=== PATIENT | female | born 1995 | race Caucasian/White ===

== ENCOUNTER 2018-04-13 23:26 | Emergency (ER) | payer BC ==
[2018-04-13 23:39] VITALS: BP 107/72; PULSE 92; RESP 20; TEMP 98.4; O2SAT 99
[2018-04-13 23:51] LABS: HCG,QUALITATIVE URINE NEGATIVE (NEGATIVE)
[2018-04-14] LABS: SQUAMOUS EPITHIAL 4 /hpf (0-5); URINE BACTERIA RARE (<OCC); URINE BILIRUBIN NEGATIVE (NEGATIVE); URINE BLOOD NEGATIVE (NEGATIVE); URINE CLARITY Hazy (Clear); URINE COLOR Yellow (YELLOW); URINE GLUCOSE (UA) NORMAL (Normal); URINE LEUKOCYTE ESTERASE 2+ Leu/uL (Negative); URINE PROTEIN 1+ mg/dL (NEGATIVE)
--- NOTE | 2018-04-14 00:29 | C.PDOC ---
History Of Present Illness 22 year old female presents to the emergency department with complaints of experiencing dysuria over the past week. Patient states that her dysuria is associated with frequency. Patient reports taking OTC medications at home with no relief. She denies hematuria, back pain, fever, or vomiting. Time Seen by Provider: 04/13/18 23:38 Chief Complaint (Nursing): Female Genitourinary History Per: Patient History/Exam Limitations: no limitations Onset/Duration Of Symptoms: Other (1 week) Current Symptoms Are (Timing): Still Present Quality Of Discomfort: "Pain" Associated Symptoms: Urinary Symptoms (dysuria). denies: Fever, Vomiting, Back Pain, Other (hematuria) Past Medical History Reviewed: Historical Data, Nursing Documentation, Vital Signs Vital Signs: Last Vital Signs Temp 98.4 F 04/13/18 23:35 Pulse 92 H 04/13/18 23:35 Resp 20 04/14/18 00:51 BP 107/72 04/13/18 23:35 Pulse Ox 99 04/14/18 01:59 - Medical History PMH: No Chronic Diseases Surgical History: No Surg Hx Family History: States: No Known Family Hx - Social History Hx Alcohol Use: No Hx Substance Use: No - Immunization History Hx Tetanus Toxoid Vaccination: No Hx Influenza Vaccination: No Hx Pneumococcal Vaccination: No Review Of Systems Except As Marked, All Systems Reviewed And Found Negative. Constitutional: Negative for: Fever Gastrointestinal: Negative for: Vomiting Genitourinary: Positive for: Dysuria. Negative for: Hematuria Musculoskeletal: Negative for: Back Pain Physical Exam - Physical Exam Appears: Non-toxic, No Acute Distress Skin: Warm, Dry, No Rash Head: Atraumatic, Normacephalic Eye(s): bilateral: Normal Inspection Oral Mucosa: Moist Throat: No Erythema, No Exudate Neck: Normal ROM, Supple Chest: Symmetrical, No Tenderness Cardiovascular: Rhythm Regular, No Murmur Respiratory: No Rales, No Rhonchi, No Wheezing Gastrointestinal/Abdominal: Soft, Tenderness (suprapubic tenderness), No Guarding, No Rebound Back: No CVA Tenderness Neurological/Psych: Oriented x3, Normal Speech, Normal Cognition ED Course And Treatment O2 Sat by Pulse Oximetry: 99 (RA) Pulse Ox Interpretation: Normal Progress Note: Plan: Cipro 500mg PO. Pyridium 200mg PO. Urine Culture. Urine. Urinalysis Disposition - Disposition Referrals: [facility] [Outside] Disposition: HOME/ ROUTINE Disposition Time: 00:27 Condition: FAIR Additional Instructions: Follow up with the medical doctor within 1-2 days, Return if worsened. Prescriptions: Ciprofloxacin [Cipro] 1 tab PO BID #14 tab Phenazopyridine HCl [Pyridium] 200 mg PO TID #7 tablet Instructions: Urinary Tract Infections in Adults Forms: [facility] (Indonesian) - Clinical Impression Clinical Impression: UTI (urinary tract infection) - PA / PHD INTERN / Resident Statement MD/DO has reviewed & agrees with the documentation as recorded. - Scribe Statement The provider has reviewed the documentation as recorded by the Scribe (Gumaro Pastor) All medical record entries made by the Scribe were at my direction and personally dictated by me. I have reviewed the chart and agree that the record accurately reflects my personal performance of the history, physical exam, medical decision making, and the department course for this patient. I have also personally directed, reviewed, and agree with the discharge instructions and disposition.
== END 2018-04-14 00:51 | disposition home or self-care (01) ==
LOC: C.ER 23:26
DX: N39.0 Urinary tract infection, site not specified (principal)

== ENCOUNTER 2018-09-02 11:02 | Emergency (ER) | payer BC ==
[2018-09-02 11:09] VITALS: RESP 18; O2SAT 100
[2018-09-02] MEDS ORDERED: Sodium Chloride 0.9% 1,000 ML IV ONE (11:25)
--- NOTE | 2018-09-02 11:46 | C.PDOC ---
History Of Present Illness 23 year old female presents at 13-14 weeks complaining of vaginal bleeding since this morning. She denies any previous episodes of spotting and was last seen by [employer] on Monday (normal exam). She states she noticed bright red blood initially but now just notices dark brown spotting on her underwear. She denies any clots or hemorrhaging. She denies any fever, chills, headache, abdominal pain, N/V/D, SOB and chest pain. <Andrea Mena - Last Filed: 09/02/18 15:28> <Eloisa Sylvester - Last Filed: 09/02/18 15:09> History Per: Patient, Family History/Exam Limitations: no limitations Onset/Duration Of Symptoms: Sudden Onset Current Symptoms Are (Timing): Still Present Associated Symptoms: denies: Fever, Chills, Nausea, Vomiting, Loss Of Appetite, Back Pain, Chest Pain, Urinary Symptoms Recent travel outside of the [place]: No Abnormal Vaginal Bleeding: Yes : 1 Para: 0 Miscarriage: 0 <Andrea Mena - Last Filed: 09/02/18 15:28> Time Seen by Provider: 09/02/18 11:24 Chief Complaint (Nursing): Female Genitourinary Past Medical History Vital Signs: Last Vital Signs Temp 98.2 F 09/02/18 14:21 Pulse 81 09/02/18 14:21 Resp 18 09/02/18 14:21 BP 100/68 09/02/18 14:21 Pulse Ox 100 09/02/18 14:21 <Eloisa Sylvester - Last Filed: 09/02/18 15:09> Reviewed: Historical Data, Nursing Documentation, Vital Signs Vital Signs: Last Vital Signs Temp 97.4 F L 09/02/18 11:05 Pulse 80 09/02/18 11:05 Resp 18 09/02/18 11:05 BP 107/67 09/02/18 11:05 Pulse Ox 100 09/02/18 11:05 - Medical History PMH: No Chronic Diseases Family History: States: Unknown Family Hx - Social History Hx Alcohol Use: No Hx Substance Use: No - Immunization History Hx Tetanus Toxoid Vaccination: No Hx Influenza Vaccination: No Hx Pneumococcal Vaccination: No <Andrea Mena - Last Filed: 09/02/18 15:28> Review Of Systems Constitutional: Negative for: Fever, Chills, Weakness Cardiovascular: Negative for: Chest Pain, Palpitations, Light Headedness Respiratory: Negative for: Cough, Shortness of Breath Gastrointestinal: Negative for: Nausea, Vomiting, Abdominal Pain, Diarrhea Genitourinary: Positive for: Vaginal Bleeding. Negative for: Dysuria, Vaginal Discharge, Pelvic Pain Musculoskeletal: Negative for: Back Pain, Leg Pain Skin: Negative for: Rash Neurological: Negative for: Headache, Dizziness <Andrea Mena - Last Filed: 09/02/18 15:28> Physical Exam - Physical Exam Appears: Well, Non-toxic, No Acute Distress Skin: Normal Color, Warm, Dry Head: Atraumatic, Normacephalic, No Tenderness Neck: Normal ROM, Supple Lymphatic: No Adenopathy Chest: Symmetrical Cardiovascular: Rhythm Regular Respiratory: Normal Breath Sounds, No Wheezing Gastrointestinal/Abdominal: Bowel Sounds, Soft, No Tenderness Back: No CVA Tenderness Neurological/Psych: Oriented x3, Normal Speech, Normal Cognition, Normal Sensation <Andrea Mena - Last Filed: 09/02/18 15:28> ED Course And Treatment - Laboratory Results Result Diagrams: 09/02/18 11:48 09/02/18 11:48 Lab Results: Total Bilirubin 0.4 mg/dL (0.2-1.3) 09/02/18 11:48 AST 17 U/L (14-36) 09/02/18 11:48 ALT 14 U/L (9-52) 09/02/18 11:48 Alkaline Phosphatase 49 U/L (38-126) 09/02/18 11:48 Total Protein 7.0 g/dL (6.3-8.3) 09/02/18 11:48 Albumin 4.0 g/dL (3.5-5.0) 09/02/18 11:48 Globulin 3.0 gm/dL (2.2-3.9) 09/02/18 11:48 Albumin/Globulin Ratio 1.4 (1.0-2.1) 09/02/18 11:48 Urine Color Straw (YELLOW) 09/02/18 11:48 Urine Clarity Clear (Clear) 09/02/18 11:48 Urine pH 7.0 (5.0-8.0) 09/02/18 11:48 Ur Specific [place] 1.012 (1.003-1.030) 09/02/18 11:48 Urine Protein Negative mg/dL (NEGATIVE) 09/02/18 11:48 Urine Glucose (UA) Normal mg/dL (Normal) 09/02/18 11:48 Urine Ketones Negative mg/dL (NEGATIVE) 09/02/18 11:48 Urine Blood 2+ (NEGATIVE) H 09/02/18 11:48 Urine Nitrate Negative (NEGATIVE) 09/02/18 11:48 Urine Bilirubin Negative (NEGATIVE) 09/02/18 11:48 Urine Urobilinogen Normal mg/dL (0.2-1.0) 09/02/18 11:48 Ur Leukocyte Esterase Neg Susan/uL (Negative) 09/02/18 11:48 Urine WBC (Auto) 1 /hpf (0-5) 09/02/18 11:48 Urine RBC (Auto) 8 /hpf (0-3) H 09/02/18 11:48 Ur Squamous Epith Cells 5 /hpf (0-5) 09/02/18 11:48 Urine Bacteria Rare (<OCC) 09/02/18 11:48 Urine HCG, Qual Positive (NEGATIVE) 09/02/18 11:48 Beta HCG, Quant 00296.00 mIU/ML 09/02/18 11:48 Urine HCG, Qual Positive (NEGATIVE) 09/02/18 11:48 <Eloisa Sylvester M - Last Filed: 09/02/18 15:09> - Laboratory Results Result Diagrams: 09/02/18 11:48 09/02/18 11:48 O2 Sat by Pulse Oximetry: 100 - Other Rad US X-Ray: Viewed By Me, Read By Radiologist Interpretation: Accession No. : [id number]. Patient Name / ID : SERENA MIJARES / [id number]. Exam Date : 09/02/2018 12:53:32 ( Approved ). Study Comment : Sex / Age : F / 23Y. Creator : Stan Washington MD. Dictator : Stan Washington MD. Data Storage Specialist : Cafeteria Counter Attendant : Stan Washington MD. Approver2 : Report Date : 09/02/2018 14:57:53. My Comment : . Pelvic ultrasound. HISTORY: . Bleeding. Comparison: None available. Technique: Real-time sonography was performed through the pelvis. Findings: Please note this is a limited study for viability purposes only. Dedicated anatomic survey at an interval date is recommended to assess for anomaly. Cervical os measures 3.05 centimeters. Posterior placental position. Posterior placenta approximately 4.2 centimeters away from the covering os. Variable presentation. motion and heart rate noted. heart rate 156 beats per minute. Mean ultrasound age of approximately 14 weeks and 2 days. Biparietal diameter abel ures 2.6 centimeters, head circumference measures 9.6 centimeters, abdominal circumference measures 8.1 centimeters, and femur measures 1.5 centimeters. Please note 4 chamber heart view and 3 vessel cord insert views were not documented on the submitted images. Again dedicated anatomic survey is recommended at an interval date. Impression: Limited study for viability purposes only. Dedicated anatomic survey at an interval date is recommended to assess for anomaly. Intrauterine corresponding to a mean ultrasound age of approximately 14 weeks and 2 days with heart rate of 156 beats per minute. <Andrea Mena - Last Filed: 09/02/18 15:28> Disposition Counseled Patient/Family Regarding: Studies Performed, Diagnosis, Need For Followup - Disposition Disposition Time: 15:08 - POA Present On Arrival: None <Eloisa Sylvester - Last Filed: 09/02/18 15:09> <Andrea Mena - Last Filed: 09/02/18 15:28> - Disposition Referrals: Nancie Wilson MD [Staff Provider] - Disposition: HOME/ ROUTINE Condition: STABLE Instructions: Threatened Miscarriage (DC) Forms: [facility] (Bengali), General Discharge Instructions - Clinical Impression Clinical Impression: Threatened - PA / BSW / Resident Statement MD/DO has reviewed & agrees with the documentation as recorded. <Andrea Mena - Last Filed: 09/02/18 15:28>
[2018-09-02 11:55] LABS: BASO % 0.4 % (0.0-2.0); EOS % 0.2 % (0.0-4.0); HEMOGLOBIN 11.3 g/dL (11.0-16.0); LYMPH % 11.1 % (20.0-40.0); MEAN CELL VOLUME 71.3 fL (81.0-99.0); MEAN CORPUSCULAR HEMOGLOBIN 22.8 pg (27.0-31.0); MEAN CORPUSCULAR HGB CONC 31.9 g/dL (33.0-37.0); MEAN PLATELET VOLUME 9.4 fL (7.2-11.7); MONO # 0.4 K/uL (0.0-0.8); MONO % 5.1 % (0.0-10.0); NEUT # 7.2 K/uL (1.8-7.0); NEUT % 83.2 % (50.0-75.0); RBC 4.96 Mil/uL (3.80-5.20); RED CELL DISTRIBUTION WIDTH 15.6 % (11.5-14.5); WHITE BLOOD COUNT 8.6 K/uL (4.8-10.8)
[2018-09-02 11:56] LABS: HCG,QUALITATIVE URINE POSITIVE (NEGATIVE)
[2018-09-02 11:58] LABS: SQUAMOUS EPITHIAL 5 /hpf (0-5); URINE BACTERIA RARE (<OCC); URINE BILIRUBIN NEGATIVE (NEGATIVE); URINE BLOOD 2+ (NEGATIVE); URINE CLARITY Clear (Clear); URINE COLOR Straw (YELLOW); URINE GLUCOSE (UA) NORMAL (Normal); URINE LEUKOCYTE ESTERASE NEG Leu/uL (Negative); URINE PROTEIN NEGATIVE (NEGATIVE); URINE UROBILINOGEN NORMAL mg/dL (0.2-1.0)
[2018-09-02 12:13] LABS: ALB/GLOB RATIO 1.4 (1.0-2.1); ALT/SGPT 14 U/L (9-52); AST/SGOT 17 U/L (14-36); BLOOD UREA NITROGEN 13 mg/dL (7-17); CALCIUM 8.6 mg/dl (8.6-10.4); GFR NON-AFRICAN AMERICAN > 60
[2018-09-02 14:22] VITALS: BP 100/68; PULSE 81; TEMP 98.2
--- NOTE | 2018-09-02 15:01 | US ---
Pelvic ultrasound HISTORY: . Bleeding. Comparison: None available. Technique: Real-time sonography was performed through the pelvis. Findings: Please note this is a limited study for viability purposes only. Dedicated anatomic survey at an interval date is recommended to assess for anomaly. Cervical os measures 3.05 centimeters. Posterior placental position. Posterior placenta approximately 4.2 centimeters away from the covering os. Variable presentation. motion and heart rate noted. heart rate 156 beats per minute. Mean ultrasound age of approximately 14 weeks and 2 days. Biparietal diameter measures 2.6 centimeters, head circumference measures 9.6 centimeters, abdominal circumference measures 8.1 centimeters, and femur measures 1.5 centimeters. Please note 4 chamber heart view and 3 vessel cord insert views were not documented on the submitted images. Again dedicated anatomic survey is recommended at an interval date. Impression: Limited study for viability purposes only. Dedicated anatomic survey at an interval date is recommended to assess for anomaly. Intrauterine corresponding to a mean ultrasound age of approximately 14 weeks and 2 days with heart rate of 156 beats per minute.
== END 2018-09-02 15:29 | disposition home or self-care (01) ==
LOC: C.ER 11:02
DX: O20.0 Threatened abortion (principal); Z3A.14 14 weeks gestation of pregnancy
CPT/HCPCS: 76815; 80053; 81001; 84702; 84703; 85025; 86850; 86900; 96360; 99284; J7030